=== PATIENT | male | born 1955 | race Caucasian/White ===

== ENCOUNTER 2023-05-18 16:05 | Inpatient (IN) | payer OTHER, MEDICARE, MEDICAID ==
[~2023-05-18] VITALS: Ht 177.8 cm; Wt 96.4 kg
[2023-05-18 19:01] LABS: MEAN CORPUSCULAR VOLUME 80.1 FL (78-98)
[2023-05-18 19:02] LABS: HEMATOCRIT 32.2 % (42.0-52.0); MEAN CORPUSCULAR HEMOGLOBIN 24.8 PG (27.0-31.0); MEAN PLATELET VOLUME 8.5 FL (7.4-10.4); PLATELET COUNT 165 X10'3 (140-440); RED BLOOD COUNT 4.02 X10'6 (4.70-6.10); RED CELL DISTRIBUTION WIDTH 23.9 % (11.5-14.5); WHITE BLOOD COUNT 9.8 X10'3 (4.5-11.0)
[2023-05-18 19:15] LABS: ALANINE AMINOTRANSFERASE 58 U/L (12-78); ALBUMIN 3.5 G/DL (3.4-5.0); ALBUMIN/GLOBULIN RATIO 1.1 (1.1-1.5); ALKALINE PHOSPHATASE 164 IU/L (46-116); ANION GAP 15 (8-16); ASPARTATE AMINO TRANSFERASE 97 U/L (10-37); BILIRUBIN,TOTAL 1.9 MG/DL (0.1-1.0); BLOOD UREA NITROGEN 32 MG/DL (7-18); CALCIUM 9.1 MG/DL (8.5-10.1); CHLORIDE 99 MMOL/L (99-107); GLUCOSE 77 MG/DL (70-104); POTASSIUM 4.5 MMOL/L (3.5-5.1); SODIUM 135 MMOL/L (135-145); TOTAL CARBON DIOXIDE 21.4 MMOL/L (24-32); TOTAL PROTEIN 6.7 G/DL (6.4-8.2); eCRCL 26 ML/MIN; eGFR 22 ML/MIN
[2023-05-18 19:51] LABS: PRO BRAIN NATRIURETIC PEPTIDE > 30000 PG/ML (0-125)
[2023-05-18 20:47] LABS: ANISOCYTOSIS 3+; NUCLEATED RED BLOOD CELLS 2 /100WBC (0-0); PLATELET ESTIMATE NORMAL; TOTAL CELLS COUNTED 100
[2023-05-18 20:48] LABS: HYPOCHROMASIA 1+; POLYCHROMASIA 1+; SCHISTOCYTES FEW
[2023-05-18 20:49] LABS: ACANTHOCYTES FEW
[2023-05-18 20:50] LABS: POIKILOCYTOSIS 1+
[2023-05-18 20:52] LABS: BURR CELLS 1+; ELLIPTOCYTES FEW
[2023-05-19] MEDS ORDERED: LORazepam 2 mg/ml vial IV ONE (02:20)
[2023-05-19] MEDS ORDERED: acetaminophen 325mg tablet PO ONE (02:50)
[2023-05-19 03:47] LABS: APTT 30 SECONDS (22-32); INR 1.1 INR; PROTHROMBIN TIME 11.8 SECONDS (9.0-12.0)
[2023-05-19 03:57] LABS: MAGNESIUM 2.4 MG/DL (1.5-2.4); PHOSPHORUS 3.6 MG/DL (2.3-4.5); THYROID STIMULATING HORMONE 2.05 ulU/ml (0.34-4.50)
[2023-05-19 04:13] LABS: ETHANOL < 10 MG/DL (<10)
[2023-05-19] MEDS ORDERED: potassium Cl 40MEQ/1/2NS 520ml 520 ML IV PRN (05:00)
[2023-05-19] MEDS ORDERED: magnesium Cl slow-release 64mg tablet PO PRN (05:00)
[2023-05-19] MEDS ORDERED: ondansetron/PF 4mg/2ml inj IV PRN (05:00)
[2023-05-19] MEDS ORDERED: acetaminophen 325mg tablet PO PRN ×2 (05:00)
[2023-05-19] MEDS ORDERED: magnesium 4gm in 100ml NS 100 ML IV PRN (05:00)
[2023-05-19] MEDS ORDERED: magnesium 2GM in 50ml NS 50 ML IV PRN (05:00)
[2023-05-19] MEDS ORDERED: potassium Cl 20 mEq SR tablet PO PRN ×2 (05:00)
[2023-05-19] MEDS ORDERED: HYDROcodone/acetaminophen 5mg/325mg tablet PO PRN (05:00)
[2023-05-19] MEDS ORDERED: morphine 2 MG/ML inj. syringe IV PRN ×2 (05:00)
[2023-05-19] MEDS ORDERED: LORazepam 2 mg/ml vial IV PRN (05:05)
[2023-05-19] MEDS ORDERED: LORazepam 1 MG tablet PO PRN (05:05)
[2023-05-19 06:03] LABS: BILIRUBIN,URINE NEGATIVE (Neg); CLARITY,URINE SLIGHTLY CLOUDY (Clear); COLOR,URINE YELLOW (Yellow); GLUCOSE, URINE 250 mg/dl (Neg); KETONES,URINE NEGATIVE (Neg); LEUKOCYTE ESTERASE ,URINE NEGATIVE (Neg); NITRITES, URINE NEGATIVE (Neg); OCCULT BLOOD,URINE SMALL (Neg); PH,URINE 5.5 (4.8-8.0); PROTEIN,URINE TRACE mg/dl (Neg); UROBILINOGEN,URINE 0.2 E.U/dL (0.2-1.0)
[2023-05-19 06:07] LABS: URINE AMPHETAMINE SCREEN NEGATIVE (Neg); URINE BARBITUATE SCREEN NEGATIVE (Neg); URINE BENZODIAZEPINES SCREEN POSITIVE (Neg); URINE CANNABINOID SCREEN NEGATIVE (Neg); URINE COCAINE SCREEN NEGATIVE (Neg); URINE METHADONE SCREEN NEGATIVE (Neg); URINE OPIATE SCREEN POSITIVE (Neg); URINE PHENCYCLIDINE SCREEN NEGATIVE (Neg)
[2023-05-19 06:15] LABS: UA COLLECTION TYPE CLN CATCH MIDSTREAM
[2023-05-19 06:16] LABS: BACTERIA,URINE 1+ /HPF (Neg); MUCUS STRANDS NONE SEEN /LPF (Neg); RBC,URINE 0-2 /HPF (0-2); SQUAMOUS EPITHELIAL CELL,UR FEW /LPF (FEW); WBC,URINE 30-50 /HPF (0-4)
[2023-05-19 06:17] LABS: COARSE GRANULAR CAST >30 /LPF (NEGATIVE)
--- NOTE | 2023-05-19 07:25 | NUR ---
PT C/O OF CHEST AND BACK PAIN. EKG ORDERED.
--- NOTE | 2023-05-19 07:45 | NUR ---
EKG DONE AND GIVEN TO DR. STEINER
[2023-05-19] MEDS ORDERED: cephalexin 250mg capsule PO SCH (08:00)
--- NOTE | 2023-05-19 08:30 | NUR ---
SPOKE WITH HOSPITALIST REGARDING ANOTHER TROP. PER DR. ANDRADE NO OTHER TROP IS NEEDED.
[2023-05-19] MEDS: pantoprazole 40mg Tablet.DR PO SCH (09:16)
[2023-05-19] MEDS: furosemide 20 MG/2 ML vial IV SCH ×2 (09:17→20:00)
[2023-05-19 10:21] LABS: D-DIMER 1.12 MG/L FEU (0-0.50)
--- NOTE | 2023-05-19 13:00 | NUR ---
PT USING URINAL WITH NO PROBLEMS
--- NOTE | 2023-05-19 15:08 | NUR ---
PT RESTING IN NO DISTRESS.
[2023-05-19] MEDS ORDERED: EMPA10TA PO (16:12)
[2023-05-19] MEDS ORDERED: AMI200T PO (16:12)
[2023-05-19] MEDS ORDERED: ATOR40TA71 PO (16:12)
[2023-05-19] MEDS ORDERED: FURO-150 PO (16:12)
[2023-05-19] MEDS ORDERED: APIX5TAB3 PO (16:12)
[2023-05-19] MEDS ORDERED: PANT-47 PO (16:12)
[2023-05-19] MEDS ORDERED: ALLO100T PO (16:12)
[2023-05-19] MEDS ORDERED: CHOL100025 PO (16:12)
[2023-05-19] MEDS ORDERED: SACU1TAB7 PO (16:12)
[2023-05-19] MEDS ORDERED: CARB15DR58 EACHEYE (16:12)
[2023-05-19] MEDS ORDERED: METO-384 PO (16:12)
[2023-05-19] MEDS ORDERED: ASPI-611 PO (16:12)
[2023-05-19] MEDS ORDERED: NITR0.4T51 SL (16:12)
--- NOTE | 2023-05-19 16:33 | NUR ---
ECHO AT BEDSIDE
[2023-05-19] MEDS: HYDROcodone/acetaminophen 10/325mg tab PO PRN (17:14)
[2023-05-19 17:18] VITALS: BP 97/71; PULSE 55; RESP 18; TEMP 97.8; O2SAT 91
[2023-05-19 18:00] VITALS: BP 83/62; PULSE 60; RESP 16; TEMP 97.8; O2SAT 96
--- NOTE | 2023-05-19 18:24 | NUR ---
GAVE REPORT TO TAMY ROACH
[2023-05-19] MEDS ORDERED: enoxaparin 30mg/0.3ml syringe SUBCUT SCH (20:00)
[2023-05-19] MEDS ORDERED: cholecalciferol (vitamin D3) 1,000 unit (25mcg) tablet PO SCH (20:10)
[2023-05-19] MEDS ORDERED: vancomycin inj 1,000 MG in normal saline 250ml IV soln 250 ML IV ONE (20:10)
[2023-05-19] MEDS ORDERED: nitroGLYCERIN 0.4mg SUBLingual tab SL PRN (20:10)
[2023-05-19] MEDS ORDERED: CefTRIAXone/D5W-Rocephin 1gm 50 ML IV ONE (20:10)
[2023-05-19] MEDS ORDERED: CARBOXYMETHYLCELLULOSE SODIUM EACHEYE PRN (20:10)
[2023-05-19] MEDS ORDERED: VANCOMYCIN 750MG IV in NS 250 ML IV SCH (20:24)
[2023-05-19 21:29] VITALS: BP 93/64; PULSE 59; RESP 18; O2SAT 96
[2023-05-19 22:00] VITALS: BP 102/69; PULSE 59; RESP 16; TEMP 97.8; O2SAT 98
[2023-05-20] VITALS (7 sets, daily range): BP systolic 86–100; BP diastolic 58–66; PULSE 60–68; RESP 13–18; TEMP 97–97.7; O2SAT 64–98
--- NOTE | 2023-05-20 06:37 | NUR ---
Problems reprioritized. Patient report given, questions answered & plan of care reviewed with TAMY ANTHONY.
[2023-05-20] MEDS ORDERED: pantoprazole 40mg Tablet.DR PO SCH (08:00)
[2023-05-20] MEDS: furosemide 20 MG/2 ML vial IV SCH ×2 (08:00→20:00)
[2023-05-20] MEDS: pantoprazole 40mg Tablet.DR PO SCH (09:14)
[2023-05-20] MEDS: aspirin 81mg, enteric-coated 1 TAB TABLET.DR PO SCH ×2 (09:15→09:21)
[2023-05-20] MEDS: EMPAGLIFLOZIN 10 MG TABLET PO SCH (09:15)
[2023-05-20] MEDS: apixaban 5mg tablet PO SCH ×2 (09:15→21:32)
[2023-05-20] MEDS: sacubitril/valsartan 24mg-26mg tablet PO SCH ×3 (09:15→20:00)
[2023-05-20] MEDS: atorvastatin 20mg tablet PO SCH (09:15)
[2023-05-20] MEDS: amiodarone 200mg tablet PO SCH (09:16)
[2023-05-20] MEDS: allopurinol 100mg tablet PO SCH (09:16)
[2023-05-20] MEDS: metoprolol succinate 25mg (24-HOUR) SR. Tablet PO SCH (09:16)
[2023-05-20 10:01] LABS: HEMATOCRIT 29.6 % (42.0-52.0); HEMOGLOBIN 9.2 g/dl (14.0-17.9); MEAN CORPUSCULAR HEMOGLOBIN 25.1 PG (27.0-31.0); MEAN CORPUSCULAR HGB CONC 31.2 g/dL (33.0-36.5); MEAN CORPUSCULAR VOLUME 80.6 FL (78-98); MEAN PLATELET VOLUME 8.2 FL (7.4-10.4); PLATELET COUNT 155 X10'3 (140-440); RED BLOOD COUNT 3.68 X10'6 (4.70-6.10); RED CELL DISTRIBUTION WIDTH 24.3 % (11.5-14.5); WHITE BLOOD COUNT 8.4 X10'3 (4.5-11.0)
[2023-05-20 10:21] LABS: ALANINE AMINOTRANSFERASE 65 U/L (12-78); ALBUMIN 3.2 G/DL (3.4-5.0); ALKALINE PHOSPHATASE 153 IU/L (46-116); ANION GAP 10 (8-16); ASPARTATE AMINO TRANSFERASE 88 U/L (10-37); BILIRUBIN,TOTAL 1.1 MG/DL (0.1-1.0); BLOOD UREA NITROGEN 41 MG/DL (7-18); BUN/CREATININE RATIO 14.4 (10.0-20.0); CALCIUM 8.9 MG/DL (8.5-10.1); CHLORIDE 100 MMOL/L (99-107); CREATININE 2.85 MG/DL (0.60-1.10); GLUCOSE 97 MG/DL (70-104); LIPASE 150 U/L (16-77); POTASSIUM 3.9 MMOL/L (3.5-5.1); SODIUM 134 MMOL/L (135-145); TOTAL CARBON DIOXIDE 23.9 MMOL/L (24-32); TOTAL PROTEIN 6.3 G/DL (6.4-8.2); eCRCL 26 ML/MIN; eGFR 22 ML/MIN
[2023-05-20 11:04] LABS: ANISOCYTOSIS 3+; PLATELET ESTIMATE NORMAL; POIKILOCYTOSIS 1+; TOTAL CELLS COUNTED 100
[2023-05-20 11:05] LABS: ELLIPTOCYTES FEW; HYPOCHROMASIA 1+; POLYCHROMASIA 1+; SCHISTOCYTES FEW
[2023-05-20 11:06] LABS: ACANTHOCYTES FEW
[2023-05-20] MEDS: HYDROcodone/acetaminophen 10/325mg tab PO PRN (12:04)
[2023-05-20] MEDS ORDERED: ondansetron 4mg rapidly disintigrating tab PO PRN (14:45)
[2023-05-20] MEDS: CefTRIAXone/D5W-Rocephin 1gm 50 ML IV SCH (21:47)
[2023-05-20] MEDS: VANCOMYCIN 750MG IV in NS 250 ML IV SCH (22:37)
[2023-05-21] VITALS (7 sets, daily range): BP systolic 88–122; BP diastolic 53–65; PULSE 55–77; RESP 12–17; TEMP 97.5–98; O2SAT 95–100
--- NOTE | 2023-05-21 03:00 | NUR ---
I AGREE WITH PADDED PRODUCTS FINISHER'S ASSESSMENT.
[2023-05-21] MEDS: EMPAGLIFLOZIN 10 MG TABLET PO SCH (08:00)
[2023-05-21] MEDS: allopurinol 100mg tablet PO SCH (08:00)
[2023-05-21] MEDS: metoprolol succinate 25mg (24-HOUR) SR. Tablet PO SCH (08:00)
[2023-05-21] MEDS: sacubitril/valsartan 24mg-26mg tablet PO SCH ×2 (08:00→20:00)
[2023-05-21] MEDS: apixaban 5mg tablet PO SCH ×2 (08:02→21:49)
[2023-05-21] MEDS: aspirin 81mg, enteric-coated 1 TAB TABLET.DR PO SCH (08:02)
[2023-05-21] MEDS: atorvastatin 20mg tablet PO SCH (08:02)
[2023-05-21] MEDS: furosemide 20 MG/2 ML vial IV SCH (08:02)
[2023-05-21] MEDS: pantoprazole 40mg Tablet.DR PO SCH (08:02)
[2023-05-21] MEDS: amiodarone 200mg tablet PO SCH (08:02)
[2023-05-21 09:32] LABS: HEMATOCRIT 30.1 % (42.0-52.0); HEMOGLOBIN 9.4 g/dl (14.0-17.9); MEAN CORPUSCULAR HEMOGLOBIN 25.2 PG (27.0-31.0); MEAN CORPUSCULAR HGB CONC 31.3 g/dL (33.0-36.5); MEAN CORPUSCULAR VOLUME 80.4 FL (78-98); MEAN PLATELET VOLUME 8.2 FL (7.4-10.4); PLATELET COUNT 155 X10'3 (140-440); RED BLOOD COUNT 3.74 X10'6 (4.70-6.10); RED CELL DISTRIBUTION WIDTH 24.7 % (11.5-14.5); WHITE BLOOD COUNT 8.3 X10'3 (4.5-11.0)
[2023-05-21 09:44] LABS: INR 1.1 INR; PROTHROMBIN TIME 11.5 SECONDS (9.0-12.0)
[2023-05-21 10:05] LABS: ALANINE AMINOTRANSFERASE 59 U/L (12-78); ALBUMIN 3.3 G/DL (3.4-5.0); ALBUMIN/GLOBULIN RATIO 1.1 (1.1-1.5); ALKALINE PHOSPHATASE 150 IU/L (46-116); ANION GAP 8 (8-16); ASPARTATE AMINO TRANSFERASE 74 U/L (10-37); BLOOD UREA NITROGEN 41 MG/DL (7-18); BUN/CREATININE RATIO 16.6 (10.0-20.0); CALCIUM 8.8 MG/DL (8.5-10.1); CHLORIDE 99 MMOL/L (99-107); CREATININE 2.47 MG/DL (0.60-1.10); GLUCOSE 89 MG/DL (70-104); POTASSIUM 3.7 MMOL/L (3.5-5.1); SODIUM 132 MMOL/L (135-145); TOTAL CARBON DIOXIDE 24.9 MMOL/L (24-32); TOTAL PROTEIN 6.4 G/DL (6.4-8.2); eCRCL 30 ML/MIN; eGFR 26 ML/MIN
[2023-05-21 11:12] LABS: ANISOCYTOSIS 3+; HYPOCHROMASIA 1+; PLATELET ESTIMATE NORMAL; POLYCHROMASIA 1+; TOTAL CELLS COUNTED 100
[2023-05-21 11:13] LABS: ACANTHOCYTES 1+; ELLIPTOCYTES 1+; SCHISTOCYTES FEW
[2023-05-21] MEDS: HYDROcodone/acetaminophen 10/325mg tab PO PRN (21:50)
[2023-05-21] MEDS: CefTRIAXone/D5W-Rocephin 1gm 50 ML IV SCH (22:10)
--- NOTE | 2023-05-21 22:50 | NUR ---
called doctor and advised of pt decreased BP 88/62. advised we have held entreo and francesca. prov okay'd
[2023-05-22] MEDS: VANCOMYCIN 750MG IV in NS 250 ML IV SCH (01:04)
[2023-05-22 02:00] VITALS: BP 106/70; PULSE 67; RESP 12; TEMP 97.5; O2SAT 99
--- NOTE | 2023-05-22 04:15 | NUR ---
I AGREE WITH BREWING DIRECTOR'S ASSESSMENT
[2023-05-22 06:00] VITALS: BP 103/69; PULSE 61; RESP 14; TEMP 97.5; O2SAT 98
[2023-05-22 06:52] LABS: BASOPHILS % (AUTO) 0.7 % (0-1); EOSINOPHILS # (AUTO) 0.2 X10'3 (0-0.9); EOSINOPHILS % (AUTO) 2.3 % (0-6); HEMATOCRIT 25.9 % (42.0-52.0); HEMOGLOBIN 8.3 g/dl (14.0-17.9); LYMPHOCYTES # (AUTO) 0.9 X10'3 (1.1-4.8); LYMPHOCYTES % (AUTO) 12.3 % (21-51); MEAN CORPUSCULAR HEMOGLOBIN 25.8 PG (27.0-31.0); MEAN CORPUSCULAR HGB CONC 32.1 g/dL (33.0-36.5); MEAN CORPUSCULAR VOLUME 80.2 FL (78-98); MEAN PLATELET VOLUME 8.3 FL (7.4-10.4); MONOCYTES # (AUTO) 1.1 X10'3 (0-0.9); NEUTROPHILS # (AUTO) 4.9 X10'3 (1.8-7.7); NEUTROPHILS % (AUTO) 68.7 % (42-75); PLATELET COUNT 128 X10'3 (140-440); RED BLOOD COUNT 3.23 X10'6 (4.70-6.10); RED CELL DISTRIBUTION WIDTH 23.8 % (11.5-14.5); WHITE BLOOD COUNT 7.1 X10'3 (4.5-11.0)
[2023-05-22 07:06] LABS: ALANINE AMINOTRANSFERASE 49 U/L (12-78); ALBUMIN 2.8 G/DL (3.4-5.0); ALKALINE PHOSPHATASE 129 IU/L (46-116); ANION GAP 6 (8-16); ASPARTATE AMINO TRANSFERASE 49 U/L (10-37); BILIRUBIN,TOTAL 0.8 MG/DL (0.1-1.0); BLOOD UREA NITROGEN 41 MG/DL (7-18); BUN/CREATININE RATIO 16.7 (10.0-20.0); CALCIUM 8.6 MG/DL (8.5-10.1); CHLORIDE 101 MMOL/L (99-107); CREATININE 2.45 MG/DL (0.60-1.10); GLUCOSE 76 MG/DL (70-104); LIPASE 147 U/L (16-77); SODIUM 135 MMOL/L (135-145); TOTAL CARBON DIOXIDE 27.6 MMOL/L (24-32); TOTAL PROTEIN 5.7 G/DL (6.4-8.2); eCRCL 30 ML/MIN; eGFR 27 ML/MIN
[2023-05-22] MEDS ORDERED: allopurinol 100mg tablet PO SCH (08:00)
[2023-05-22] MEDS: metoprolol succinate 25mg (24-HOUR) SR. Tablet PO SCH (08:00)
[2023-05-22] MEDS: sacubitril/valsartan 24mg-26mg tablet PO SCH (08:00)
[2023-05-22] MEDS: EMPAGLIFLOZIN 10 MG TABLET PO SCH (08:00)
[2023-05-22] MEDS ORDERED: furosemide 20 MG/2 ML vial IV SCH (08:00)
[2023-05-22] MEDS: atorvastatin 20mg tablet PO SCH (08:32)
[2023-05-22] MEDS: pantoprazole 40mg Tablet.DR PO SCH (08:32)
[2023-05-22] MEDS: apixaban 5mg tablet PO SCH (08:32)
[2023-05-22] MEDS: aspirin 81mg, enteric-coated 1 TAB TABLET.DR PO SCH (08:32)
[2023-05-22] MEDS: amiodarone 200mg tablet PO SCH (08:32)
[2023-05-22 11:00] VITALS: BP 89/61; PULSE 64; RESP 14; TEMP 97.7; O2SAT 92
[2023-05-22 11:43] LABS: % IRON SATURATION 6 % (11-46); IRON 18 UG/DL (53-167); TOTAL IRON BINDING CAPACITY 315 UG/DL (259-388)
[2023-05-22] MEDS ORDERED: DOXY-243 PO (12:26)
[2023-05-22] MEDS ORDERED: iron sucrose complex injection 500 MG in normal saline 250ml IV soln 250 ML IV ONE (12:40)
[2023-05-22 15:00] VITALS: BP 93/57; PULSE 63; RESP 14; TEMP 97.9; O2SAT 95
--- NOTE | 2023-05-22 17:00 | NUR ---
PIV discontinued and telemetry discontinued. All Discharge paperwork given to transport. Report called to TAMY Arambula and [facility]. Pt leaving unit via wheelchair.
[2023-05-22] MEDS ORDERED: VANCOMYCIN LEVEL IV ONE (22:30)
[2023-05-23] MEDS ORDERED: thiamine 100mg tablet PO SCH (08:00)
[2023-05-23] MEDS ORDERED: folic acid 1mg tablet PO SCH (08:00)
== END 2023-05-22 17:22 | DRG 602 ==
LOC: ER 16:06 → ED HOLD 05-19 05:03 → PCU 3S 05-19 17:01
PROVIDERS: ADMIT Internal Medicine; ATTEND Family Medicine
DX: L03.116 Cellulitis of left lower limb (principal); K85.90 Acute pancreatitis without necrosis or infection, unspecified; N17.0 Acute kidney failure with tubular necrosis; I42.9 Cardiomyopathy, unspecified; I48.20 Chronic atrial fibrillation, unspecified; I50.32 Chronic diastolic (congestive) heart failure; I11.0 Hypertensive heart disease with heart failure; I73.9 Peripheral vascular disease, unspecified; I25.10 Atherosclerotic heart disease of native coronary artery without angina pectoris; E78.00 Pure hypercholesterolemia, unspecified; D50.9 Iron deficiency anemia, unspecified; M10.9 Gout, unspecified; F10.20 Alcohol dependence, uncomplicated; Z79.01 Long term (current) use of anticoagulants; Z79.84 Long term (current) use of oral hypoglycemic drugs; Z95.0 Presence of cardiac pacemaker; Z95.1 Presence of aortocoronary bypass graft; Z79.899 Other long term (current) drug therapy
CPT/HCPCS: 36415; 71045; 71250; 74176; 80053; 80305; 80320; 81001; 82948; 83540; 83550; 83605; 83690; 83735; 83880; 84100; 84145; 84443; 84484; 85007; 85025; 85379; 85610; 85651; 85730; 86885; 86900; 86901; 87040; 87081; 87088; 93005; 93306; 93971; 97116; 97161; 97530; 99285; A6212; A6250; G0378; J0696; J1756; J1940; J3370; J7040; J7050

== ENCOUNTER 2023-05-31 15:54 | Inpatient (IN) | payer OTHER, MEDICARE, MEDICAID ==
[~2023-05-31] VITALS: Ht 177.8 cm; Wt 93.7 kg
[2023-05-31] VITALS (8 sets, daily range): BP systolic 102–169; BP diastolic 66–142; PULSE 64–68; RESP 16–18; TEMP 98.4–98.8; O2SAT 93–97
[~2023-05-31 15:54] MED LIST: ALLO100T PO; AMI200T PO; APIX5TAB3 PO; ASPI-611 PO; ATOR40TA71 PO; CARB15DR58 EACHEYE; CHOL100025 PO; DOXY-243 PO; EMPA10TA PO; FURO-150 PO; METO-384 PO; NITR0.4T51 SL; PANT-47 PO; SACU1TAB7 PO
[2023-05-31 17:42] LABS: BASOPHILS % (AUTO) 0.2 % (0-1); EOSINOPHILS # (AUTO) 0.1 X10'3 (0-0.9); EOSINOPHILS % (AUTO) 0.6 % (0-6); HEMATOCRIT 22.6 % (42.0-52.0); LYMPHOCYTES # (AUTO) 0.6 X10'3 (1.1-4.8); LYMPHOCYTES % (AUTO) 4.3 % (21-51); MEAN CORPUSCULAR VOLUME 80.9 FL (78-98); MEAN PLATELET VOLUME 8.1 FL (7.4-10.4); MONOCYTES # (AUTO) 1.7 X10'3 (0-0.9); MONOCYTES % (AUTO) 13.6 % (2-12); NEUTROPHILS # (AUTO) 10.5 X10'3 (1.8-7.7); NEUTROPHILS % (AUTO) 81.3 % (42-75); PLATELET COUNT 289 X10'3 (140-440); RED BLOOD COUNT 2.79 X10'6 (4.70-6.10); RED CELL DISTRIBUTION WIDTH 26.9 % (11.5-14.5); WHITE BLOOD COUNT 12.9 X10'3 (4.5-11.0)
[2023-05-31 18:03] LABS: ALANINE AMINOTRANSFERASE 69 U/L (12-78); ALBUMIN 2.5 G/DL (3.4-5.0); ALBUMIN/GLOBULIN RATIO 0.7 (1.1-1.5); ALKALINE PHOSPHATASE 361 IU/L (46-116); ANION GAP 8 (8-16); ASPARTATE AMINO TRANSFERASE 67 U/L (10-37); BILIRUBIN,TOTAL 1.8 MG/DL (0.1-1.0); BLOOD UREA NITROGEN 32 MG/DL (7-18); BUN/CREATININE RATIO 15.3 (10.0-20.0); CALCIUM 8.6 MG/DL (8.5-10.1); CHLORIDE 99 MMOL/L (99-107); CREATININE 2.09 MG/DL (0.60-1.10); GLUCOSE 95 MG/DL (70-104); POTASSIUM 4.1 MMOL/L (3.5-5.1); SODIUM 133 MMOL/L (135-145); TOTAL CARBON DIOXIDE 26.1 MMOL/L (24-32); eCRCL 35 ML/MIN; eGFR 32 ML/MIN
[2023-05-31 18:11] LABS: BURR CELLS FEW; C-REACTIVE PROTEIN 19.13 MG/DL (0.0-0.5); HYPOCHROMASIA 1+; PLATELET ESTIMATE NORMAL; PRO BRAIN NATRIURETIC PEPTIDE 23220 PG/ML (0-125); TARGET CELLS FEW; TEAR DROP CELLS FEW
[2023-05-31 18:12] LABS: POIKILOCYTOSIS FEW
[2023-05-31] MEDS ORDERED: CefTRIAXone/D5W-Rocephin 1gm 50 ML IV ONE (20:10)
[2023-05-31] MEDS ORDERED: ipratropium/albuterol 3ml nebule NEB ONE (20:10)
[2023-05-31] MEDS ORDERED: azithromycin/NS 500mg/250ml 250 ML IV ONE (20:10)
--- NOTE | 2023-05-31 20:42 | NUR ---
NOTIFIED DR HAYNES THAT PT HAS ABX ORDER BUT THERE IS NO BLD CULTURE ORDERS PER MD VERBAL ORDER FOR BLOOD CULTURE STAT.
[2023-05-31] MEDS ORDERED: temazepam 15mg capsule PO PRN (21:00)
--- NOTE | 2023-05-31 21:37 | NUR ---
I AGREE WITH DANIELE SU DOCUMENTATION.
[2023-05-31] MEDS ORDERED: ondansetron/PF 4mg/2ml inj IV PRN (22:20)
[2023-05-31] MEDS ORDERED: mag hydrox/Alum hydrox/simeth 30ml oral suspension PO PRN (22:20)
[2023-05-31] MEDS ORDERED: magnesium hydroxide 30ml (MOM) UD suspension PO PRN (22:20)
[2023-05-31] MEDS ORDERED: acetaminophen 650mg rectal suppository RC PRN (22:20)
[2023-05-31] MEDS ORDERED: acetaminophen 325mg tablet PO PRN ×2 (22:20)
[2023-05-31] MEDS ORDERED: morphine 2 MG/ML inj. syringe IV PRN (22:20)
[2023-05-31] MEDS ORDERED: bisacodyl 10mg suppository rectal RC PRN (22:20)
[2023-05-31] MEDS ORDERED: ondansetron 4mg rapidly disintigrating tab PO PRN (22:20)
[2023-05-31 22:40] LABS: APTT 40 SECONDS (22-32); INR 1.2 INR; PROTHROMBIN TIME 13.2 SECONDS (9.0-12.0)
[2023-05-31 22:46] LABS: MAGNESIUM 2.1 MG/DL (1.5-2.4); PHOSPHORUS 4.5 MG/DL (2.3-4.5)
[2023-05-31 22:59] LABS: D-DIMER 0.93 MG/L FEU (0-0.50)
[2023-05-31 23:08] LABS: HEMOGLOBIN A1C 5.7 % (4.5-6.2)
[2023-05-31] MEDS: normal saline 1000ml 1,000 ML IV SCH (23:09)
[2023-06-01] VITALS (7 sets, daily range): BP systolic 89–128; BP diastolic 49–76; PULSE 65–79; RESP 16–22; TEMP 97.4–98.7; O2SAT 90–99
[2023-06-01 01:26] LABS: BASOPHILS # (AUTO) 0.1 X10'3 (0-0.2); BASOPHILS % (AUTO) 0.5 % (0-1); EOSINOPHILS # (AUTO) 0.2 X10'3 (0-0.9); EOSINOPHILS % (AUTO) 2.2 % (0-6); HEMATOCRIT 26.1 % (42.0-52.0); HEMOGLOBIN 8.4 g/dl (14.0-17.9); LYMPHOCYTES # (AUTO) 0.6 X10'3 (1.1-4.8); LYMPHOCYTES % (AUTO) 6.3 % (21-51); MEAN CORPUSCULAR HEMOGLOBIN 26.9 PG (27.0-31.0); MEAN CORPUSCULAR HGB CONC 32.3 g/dL (33.0-36.5); MEAN CORPUSCULAR VOLUME 83.3 FL (78-98); MEAN PLATELET VOLUME 7.6 FL (7.4-10.4); MONOCYTES # (AUTO) 1.1 X10'3 (0-0.9); MONOCYTES % (AUTO) 10.5 % (2-12); NEUTROPHILS # (AUTO) 8.1 X10'3 (1.8-7.7); NEUTROPHILS % (AUTO) 80.5 % (42-75); PLATELET COUNT 267 X10'3 (140-440); RED BLOOD COUNT 3.13 X10'6 (4.70-6.10); RED CELL DISTRIBUTION WIDTH 26.2 % (11.5-14.5)
--- NOTE | 2023-06-01 01:50 | NUR ---
Arrived from [facility] via gurney to room 4006a oriented to room and call light vss.
[2023-06-01 04:09] LABS: ANISOCYTOSIS 3+; HYPOCHROMASIA 1+; POIKILOCYTOSIS FEW; TOTAL CELLS COUNTED 100
[2023-06-01 04:10] LABS: TEAR DROP CELLS FEW
[2023-06-01 04:11] LABS: BURR CELLS 1+; PLATELET ESTIMATE NORMAL; TARGET CELLS FEW
--- NOTE | 2023-06-01 06:43 | NUR ---
Report to Roberta MORELOS.
--- NOTE | 2023-06-01 06:54 | NUR ---
Patient in room ORTHO 4006. I have received report from TAMY Lee and had the opportunity to ask questions and assume patient care.
[2023-06-01 07:10] LABS: BASOPHILS # (AUTO) 0.1 X10'3 (0-0.2); BASOPHILS % (AUTO) 0.5 % (0-1); EOSINOPHILS # (AUTO) 0.3 X10'3 (0-0.9); EOSINOPHILS % (AUTO) 2.7 % (0-6); HEMOGLOBIN 8.5 g/dl (14.0-17.9); LYMPHOCYTES # (AUTO) 0.6 X10'3 (1.1-4.8); LYMPHOCYTES % (AUTO) 5.3 % (21-51); MEAN CORPUSCULAR HEMOGLOBIN 26.2 PG (27.0-31.0); MEAN CORPUSCULAR HGB CONC 31.5 g/dL (33.0-36.5); MEAN CORPUSCULAR VOLUME 83.3 FL (78-98); MONOCYTES # (AUTO) 1.4 X10'3 (0-0.9); MONOCYTES % (AUTO) 12.4 % (2-12); NEUTROPHILS # (AUTO) 8.9 X10'3 (1.8-7.7); NEUTROPHILS % (AUTO) 79.1 % (42-75); PLATELET COUNT 261 X10'3 (140-440); RED BLOOD COUNT 3.24 X10'6 (4.70-6.10); RED CELL DISTRIBUTION WIDTH 26.3 % (11.5-14.5); WHITE BLOOD COUNT 11.2 X10'3 (4.5-11.0)
[2023-06-01] MEDS: furosemide 20 MG/2 ML vial IV SCH (07:36)
[2023-06-01] MEDS: docusate sod 100mg capsule PO SCH ×2 (07:37→20:31)
[2023-06-01 07:39] LABS: ALANINE AMINOTRANSFERASE 63 U/L (12-78); ALBUMIN 2.5 G/DL (3.4-5.0); ALBUMIN/GLOBULIN RATIO 0.7 (1.1-1.5); ALKALINE PHOSPHATASE 343 IU/L (46-116); ANION GAP 11 (8-16); ASPARTATE AMINO TRANSFERASE 54 U/L (10-37); BILIRUBIN,TOTAL 1.8 MG/DL (0.1-1.0); BLOOD UREA NITROGEN 30 MG/DL (7-18); BUN/CREATININE RATIO 15.4 (10.0-20.0); CALCIUM 8.6 MG/DL (8.5-10.1); CHLORIDE 101 MMOL/L (99-107); CHOL/HDL RATIO 3.3 (0.00-4.99); CHOLESTEROL 80 MG/DL (0-200); CREATININE 1.95 MG/DL (0.60-1.10); GLUCOSE 82 MG/DL (70-104); HDL CHOLESTEROL 24 MG/DL (35-60); LDL CHOLESTEROL 43 MG/DL (50-100); POTASSIUM 3.9 MMOL/L (3.5-5.1); SODIUM 135 MMOL/L (135-145); TOTAL CARBON DIOXIDE 22.6 MMOL/L (24-32); TOTAL PROTEIN 6.1 G/DL (6.4-8.2); TRIGLYCERIDES 54 MG/DL (20-135); eCRCL 38 ML/MIN; eGFR 34 ML/MIN
[2023-06-01] MEDS: HYDROcodone/acetaminophen 5mg/325mg tablet PO PRN ×2 (10:09→15:32)
[2023-06-01] MEDS ORDERED: polyvinyl alcohol ophthalmic drops 15ml bottle EACHEYE PRN (10:25)
[2023-06-01] MEDS ORDERED: nitroGLYCERIN 0.4mg SUBLingual tab SL PRN (10:25)
--- NOTE | 2023-06-01 12:18 | NUR ---
Initial: Pt DX bilateral pneumonia rule out sepsis, acute renal failure secondary to hypoxia, CHF exacerbation, and hyponatremia, with gastric tumor recently diagnosed per EMR. Pt has been advanced to a regular diet pending PO intake. LBM on 05/31 per EMR. Will continue to monitor and make recommendations as appropriate. Recommendations: 1.continue regular diet 2.monitor PO intake trend and need for ONS/double protein 3.routine bowel care 4.weekly scaled wts Addendum: 06/01/23 at [address] Amended: Links added.
[2023-06-01] MEDS: pantoprazole 40mg Tablet.DR PO SCH (15:23)
[2023-06-01] MEDS: furosemide 20MG tablet PO SCH (15:23)
[2023-06-01] MEDS: EMPAGLIFLOZIN 10 MG TABLET PO SCH (15:24)
--- NOTE | 2023-06-01 15:31 | NUR ---
MESSAGE: roddy-ortho/neuro pt rm [id number]- fide cartwright- pt would like breathing treatment, pt is coughing and has SOB, is that okay? Thank you.
[2023-06-01] MEDS: ipratropium/albuterol 3ml nebule NEB PRN (16:39)
--- NOTE | 2023-06-01 18:10 | NUR ---
Patient in room ORTHO 4006. I have received report from TAMY CERDA and had the opportunity to ask questions and assume patient care.
--- NOTE | 2023-06-01 18:15 | NUR ---
Problems reprioritized. Patient report given, questions answered & plan of care reviewed with TAMY Barnett.
[2023-06-01] MEDS: azithromycin/NS 500mg/250ml 250 ML IV SCH (20:00)
[2023-06-01] MEDS: sacubitril/valsartan 49mg-51mg tablet PO SCH (20:30)
[2023-06-01] MEDS: apixaban 5mg tablet PO SCH (20:31)
[2023-06-01] MEDS: CefTRIAXone/D5W-Rocephin 1gm 50 ML IV SCH (20:32)
[2023-06-02 06:00] VITALS: BP 120/55; PULSE 71; RESP 22; TEMP 97.6; O2SAT 97
--- NOTE | 2023-06-02 06:05 | NUR ---
received report from mao paris
[2023-06-02 06:23] LABS: BASOPHILS # (AUTO) 0.1 X10'3 (0-0.2); BASOPHILS % (AUTO) 0.7 % (0-1); EOSINOPHILS # (AUTO) 0.4 X10'3 (0-0.9); EOSINOPHILS % (AUTO) 3.4 % (0-6); HEMOGLOBIN 8.8 g/dl (14.0-17.9); LYMPHOCYTES # (AUTO) 0.6 X10'3 (1.1-4.8); LYMPHOCYTES % (AUTO) 5.1 % (21-51); MEAN CORPUSCULAR HEMOGLOBIN 26.3 PG (27.0-31.0); MEAN CORPUSCULAR HGB CONC 31.6 g/dL (33.0-36.5); MEAN CORPUSCULAR VOLUME 83.3 FL (78-98); MEAN PLATELET VOLUME 7.9 FL (7.4-10.4); MONOCYTES # (AUTO) 1.4 X10'3 (0-0.9); MONOCYTES % (AUTO) 11.9 % (2-12); NEUTROPHILS # (AUTO) 9.5 X10'3 (1.8-7.7); NEUTROPHILS % (AUTO) 78.9 % (42-75); PLATELET COUNT 299 X10'3 (140-440); RED BLOOD COUNT 3.36 X10'6 (4.70-6.10); RED CELL DISTRIBUTION WIDTH 26.7 % (11.5-14.5)
[2023-06-02 06:26] LABS: ALANINE AMINOTRANSFERASE 54 U/L (12-78); ALBUMIN 2.5 G/DL (3.4-5.0); ALBUMIN/GLOBULIN RATIO 0.7 (1.1-1.5); ALKALINE PHOSPHATASE 337 IU/L (46-116); ANION GAP 11 (8-16); ASPARTATE AMINO TRANSFERASE 44 U/L (10-37); BILIRUBIN,TOTAL 1.5 MG/DL (0.1-1.0); BLOOD UREA NITROGEN 30 MG/DL (7-18); BUN/CREATININE RATIO 15.3 (10.0-20.0); CALCIUM 8.6 MG/DL (8.5-10.1); CHLORIDE 102 MMOL/L (99-107); CREATININE 1.96 MG/DL (0.60-1.10); GLUCOSE 87 MG/DL (70-104); POTASSIUM 3.9 MMOL/L (3.5-5.1); SODIUM 138 MMOL/L (135-145); TOTAL CARBON DIOXIDE 24.9 MMOL/L (24-32); eCRCL 38 ML/MIN; eGFR 34 ML/MIN
[2023-06-02 07:14] LABS: ANISOCYTOSIS 3+; PLATELET ESTIMATE NORMAL
[2023-06-02 07:15] LABS: ELLIPTOCYTES FEW; HYPOCHROMASIA 1+; POLYCHROMASIA FEW
[2023-06-02 07:16] LABS: POIKILOCYTOSIS 1+; TEAR DROP CELLS FEW
[2023-06-02] MEDS: pantoprazole 40mg Tablet.DR PO SCH (07:44)
[2023-06-02] MEDS: docusate sod 100mg capsule PO SCH ×2 (07:44→20:39)
[2023-06-02] MEDS: metoprolol succinate 25mg (24-HOUR) SR. Tablet PO SCH (07:45)
[2023-06-02] MEDS: atorvastatin 20mg tablet PO SCH (07:45)
[2023-06-02] MEDS: furosemide 20MG tablet PO SCH (07:46)
[2023-06-02] MEDS: apixaban 5mg tablet PO SCH ×2 (07:46→20:39)
[2023-06-02] MEDS: aspirin 81mg, enteric-coated 1 TAB TABLET.DR PO SCH (07:46)
[2023-06-02] MEDS: EMPAGLIFLOZIN 10 MG TABLET PO SCH (07:46)
[2023-06-02] MEDS: sacubitril/valsartan 49mg-51mg tablet PO SCH ×2 (07:47→20:39)
[2023-06-02] MEDS: amiodarone 200mg tablet PO SCH (07:47)
[2023-06-02] MEDS: furosemide 20 MG/2 ML vial IV SCH (07:47)
[2023-06-02] MEDS ORDERED: allopurinol 100mg tablet PO SCH ×2 (08:00→13:36)
[2023-06-02 08:07] VITALS: PULSE 77; RESP 18; O2SAT 95
[2023-06-02] MEDS: HYDROcodone/acetaminophen 5mg/325mg tablet PO PRN (09:39)
[2023-06-02 10:04] VITALS: BP 149/80; PULSE 71; RESP 16; TEMP 97.6; O2SAT 97
[2023-06-02] MEDS ORDERED: cholecalciferol (vitamin D3) 1,000 unit (25mcg) tablet PO SCH (10:25)
--- NOTE | 2023-06-02 11:50 | NUR ---
PRESSURE ULCER EDUCATION: DEFINITION: A pressure ulcer is an area of skin that breaks down when you stay in one position too long. The constant pressure against the skin reduces the blood flow to that area and the affected tissue dies. CAUSES: "Being bedridden or in a wheelchair "Fragile skin "Having a chronic condition, such as diabetes or vascular disease "Inability to move certain parts of your body without assistance "Older age "Incontinence of urine or stool SYMPTOMS: "A reddened area that DOES NOT turn white when pressed on - this can be the beginning of a pressure ulcer "A blister, deep sore or a crater - these can be advanced pressure ulcers FIRST AID: "Relieve the pressure on this area "Keep the area clean and dry "Call your primary doctor if you see any of the above symptoms "DO NOT massage the area "DO NOT use a donut shaped or ring shaped pillow- these actually interfere with the blood flow and cause complications PREVENTION: "Check for pressure ulcers everyday "Change position at least every two hours to relieve pressure "Use items that help relieve pressure- pillows, sheepskin, foam padding, and powders. "Keep skin clean and dry "Eat healthy well balanced meals "Exercise daily IF YOU SEE ANY OF THESE SYMPTOMS WHILE IN THE HOSPITAL - TELL YOUR NURSE IMMEDIATELY. IF YOU SEE ANY OF THESE SYMPTOMS WHILE AT HOME OR HAVE ANY QUESTIONS OR CONCERNS ABOUT PRESSURE ULCERS - CALL YOUR PRIMARY DOCTOR IMMEDIATELY. Addendum: 06/02/23 at 1150 by Kristen Barahona LVN Amended: Links added.
[2023-06-02 18:00] VITALS: BP 116/61; PULSE 64; RESP 18; TEMP 98.4; O2SAT 94
--- NOTE | 2023-06-02 18:11 | NUR ---
gave report to mao paris
--- NOTE | 2023-06-02 18:15 | NUR ---
Patient in room ORTHO 4006. I have received report from TAMY MILLAN and had the opportunity to ask questions and assume patient care.
[2023-06-02] MEDS: CefTRIAXone/D5W-Rocephin 1gm 50 ML IV SCH (20:40)
[2023-06-02] MEDS: azithromycin/NS 500mg/250ml 250 ML IV SCH (20:40)
[2023-06-02 20:57] VITALS: PULSE 72; RESP 16; O2SAT 98
[2023-06-02] MEDS: normal saline 1000ml 1,000 ML IV SCH (21:22)
[2023-06-02 22:00] VITALS: BP 136/61; PULSE 68; RESP 18; TEMP 98.6; O2SAT 99
[2023-06-03 02:48] VITALS: PULSE 63; RESP 18; O2SAT 98
[2023-06-03] MEDS: ipratropium/albuterol 3ml nebule NEB PRN (02:48)
[2023-06-03 02:53] VITALS: PULSE 62; RESP 18
[2023-06-03 06:00] VITALS: BP 108/70; PULSE 64; RESP 16; TEMP 98.4; O2SAT 92
--- NOTE | 2023-06-03 06:50 | NUR ---
Problems reprioritized. Patient report given, questions answered & plan of care reviewed with TAMY CERDA.
--- NOTE | 2023-06-03 06:52 | NUR ---
Patient in room ORTHO 4006. I have received report from TAMY Sharma and had the opportunity to ask questions and assume patient care.
[2023-06-03 07:14] LABS: BASOPHILS # (AUTO) 0.1 X10'3 (0-0.2); BASOPHILS % (AUTO) 0.8 % (0-1); EOSINOPHILS # (AUTO) 0.4 X10'3 (0-0.9); EOSINOPHILS % (AUTO) 3.3 % (0-6); HEMATOCRIT 26.8 % (42.0-52.0); HEMOGLOBIN 8.5 g/dl (14.0-17.9); LYMPHOCYTES # (AUTO) 0.7 X10'3 (1.1-4.8); LYMPHOCYTES % (AUTO) 6.4 % (21-51); MEAN CORPUSCULAR HEMOGLOBIN 26.6 PG (27.0-31.0); MEAN CORPUSCULAR HGB CONC 31.8 g/dL (33.0-36.5); MEAN CORPUSCULAR VOLUME 83.5 FL (78-98); MEAN PLATELET VOLUME 7.8 FL (7.4-10.4); MONOCYTES # (AUTO) 1.4 X10'3 (0-0.9); MONOCYTES % (AUTO) 12.1 % (2-12); NEUTROPHILS # (AUTO) 8.8 X10'3 (1.8-7.7); NEUTROPHILS % (AUTO) 77.4 % (42-75); PLATELET COUNT 286 X10'3 (140-440); RED BLOOD COUNT 3.21 X10'6 (4.70-6.10); RED CELL DISTRIBUTION WIDTH 26.7 % (11.5-14.5); WHITE BLOOD COUNT 11.4 X10'3 (4.5-11.0)
[2023-06-03 07:26] LABS: ALANINE AMINOTRANSFERASE 50 U/L (12-78); ALBUMIN 2.4 G/DL (3.4-5.0); ALBUMIN/GLOBULIN RATIO 0.7 (1.1-1.5); ALKALINE PHOSPHATASE 316 IU/L (46-116); ANION GAP 8 (8-16); ASPARTATE AMINO TRANSFERASE 35 U/L (10-37); BILIRUBIN,TOTAL 1.2 MG/DL (0.1-1.0); BLOOD UREA NITROGEN 31 MG/DL (7-18); BUN/CREATININE RATIO 16.8 (10.0-20.0); CALCIUM 8.5 MG/DL (8.5-10.1); CHLORIDE 102 MMOL/L (99-107); CREATININE 1.84 MG/DL (0.60-1.10); GLUCOSE 86 MG/DL (70-104); POTASSIUM 3.6 MMOL/L (3.5-5.1); SODIUM 135 MMOL/L (135-145); TOTAL PROTEIN 5.9 G/DL (6.4-8.2); eCRCL 40 ML/MIN; eGFR 37 ML/MIN
[2023-06-03 08:46] LABS: ANISOCYTOSIS 3+; PLATELET ESTIMATE NORMAL; TOTAL CELLS COUNTED 100
[2023-06-03 08:47] LABS: HYPOCHROMASIA 2+
[2023-06-03 08:48] LABS: ELLIPTOCYTES FEW; TEAR DROP CELLS FEW
[2023-06-03] MEDS: apixaban 5mg tablet PO SCH (09:03)
[2023-06-03] MEDS: furosemide 20 MG/2 ML vial IV SCH (09:03)
[2023-06-03] MEDS: pantoprazole 40mg Tablet.DR PO SCH (09:04)
[2023-06-03] MEDS: furosemide 20MG tablet PO SCH (09:04)
[2023-06-03] MEDS: metoprolol succinate 25mg (24-HOUR) SR. Tablet PO SCH (09:04)
[2023-06-03] MEDS: amiodarone 200mg tablet PO SCH (09:05)
[2023-06-03] MEDS: aspirin 81mg, enteric-coated 1 TAB TABLET.DR PO SCH (09:05)
[2023-06-03] MEDS: atorvastatin 20mg tablet PO SCH (09:05)
[2023-06-03] MEDS: docusate sod 100mg capsule PO SCH (09:07)
[2023-06-03] MEDS: HYDROcodone/acetaminophen 5mg/325mg tablet PO PRN (09:07)
[2023-06-03] MEDS: EMPAGLIFLOZIN 10 MG TABLET PO SCH (09:15)
[2023-06-03] MEDS: sacubitril/valsartan 49mg-51mg tablet PO SCH (09:16)
[2023-06-03 09:34] VITALS: PULSE 64; RESP 16; O2SAT 98
[2023-06-03 10:00] VITALS: BP 104/71; PULSE 65; RESP 17; TEMP 98.2; O2SAT 94
--- NOTE | 2023-06-03 10:03 | NUR ---
Reassessment: Pt eating well, documented with 100% PO intake of all meals with the exception of 75% PO intake x 1 meal making averaging intake 96% meeting 88% estimated energy needs and 100% estimated protein needs. D/w dietary to send double protein BIDLD for satiety and to assist with meeting estimated nutrient needs. LBM 06/02 per EMR. Will continue to follow and monitor need for further nutrition intervention. Recommendations: 1. Liberalize to regular diet 2. Double protein BIDLD 3. Routine bowel care 4. Weekly scaled wts Addendum: 06/03/23 at [address] Amended: Links added.
[2023-06-03] MEDS ORDERED: AZIT500T9 PO (10:23)
[2023-06-03] MEDS ORDERED: CLIN-91 PO (10:23)
[2023-06-03] MEDS ORDERED: CEFD300C3 PO (10:23)
--- NOTE | 2023-06-03 13:31 | NUR ---
Patient report given and questions answered & plan of care reviewed with TAMY Mathew. Patient is getting picked up to be taken back to [facility] at 1330. I have not seen who/services that are picking him up yet.
--- NOTE | 2023-06-03 16:20 | NUR ---
Patient left the floor at 1410 in a wheelchair in stable conditions with gennaro cargo, to go to [facility].
== END 2023-06-03 14:30 | DRG 193 ==
LOC: ER 15:55 → ED HOLD 22:24 → ORTHO 4S 06-01 01:48
PROVIDERS: ADMIT Family Medicine; ATTEND Internal Medicine
PROC: 30233N1 Transfusion of Nonautologous Red Blood Cells into Peripheral Vein, Percutaneous Approach (ICD-10-PCS; principal; 2023-05-31)
DX: J18.9 Pneumonia, unspecified organism (principal); I50.31 Acute diastolic (congestive) heart failure; J96.01 Acute respiratory failure with hypoxia; N17.0 Acute kidney failure with tubular necrosis; E87.1 Hypo-osmolality and hyponatremia; I13.0 Hypertensive heart and chronic kidney disease with heart failure and stage 1 through stage 4 chronic kidney disease, or unspecified chronic kidney disease; E78.5 Hyperlipidemia, unspecified; D50.9 Iron deficiency anemia, unspecified; E11.22 Type 2 diabetes mellitus with diabetic chronic kidney disease; D49.0 Neoplasm of unspecified behavior of digestive system; E78.00 Pure hypercholesterolemia, unspecified; I25.10 Atherosclerotic heart disease of native coronary artery without angina pectoris; I48.91 Unspecified atrial fibrillation; M10.9 Gout, unspecified; N18.9 Chronic kidney disease, unspecified; I25.2 Old myocardial infarction; I27.20 Pulmonary hypertension, unspecified; Z79.01 Long term (current) use of anticoagulants; Z79.84 Long term (current) use of oral hypoglycemic drugs; Z87.891 Personal history of nicotine dependence; Z95.1 Presence of aortocoronary bypass graft; Z95.5 Presence of coronary angioplasty implant and graft; Y95 Nosocomial condition
CPT/HCPCS: 36415; 36430; 71045; 80053; 80061; 83036; 83735; 83880; 84100; 84484; 85007; 85008; 85025; 85379; 85610; 85730; 86140; 86885; 86900; 86901; 86920; 87040; 87081; 94640; 94760; 96365; 96367; 99285; A6250; G0378; J0456; J0696; J1940; J2270; J7030; J7040; P9016